=== PATIENT | male | born 1980 | race Caucasian/White ===

== ENCOUNTER 2020-09-01 15:08 | Emergency (ER) | payer OTHER, SELFPAY ==
[2020-09-01 15:13] VITALS: BP 145/73; PULSE 78; RESP 19; TEMP 36.9; O2SAT 96; BMI 43.1
--- NOTE | 2020-09-01 16:48 | ED.GENADULT ---
HPI - General Adult General Chief complaint: General Medical Stated complaint: RASH Time Seen by Provider: 09/01/20 16:48 History of Present Illness HPI narrative: Patient complains of red itchy rash all over his body this started 2 days ago and 3 days ago he started a new medication trazodone, he has no throat swelling no shortness of breath, no pain no blistering no dizziness no weakness Related Data Previous Rx's Medication Instructions Recorded cetirizine 10 mg PO DAILY PRN #10 tab 09/01/20 prednisone 60 mg PO DAILY 3 Days #9 tab 09/01/20 Allergies Allergy/AdvReac Type Severity Reaction Status Date / Time trazodone Allergy Hives Verified 09/01/20 17:14 Review of Systems Review of Systems: Positive for red itchy rash Negatives are no fever no chills no dizziness no weakness no swelling in the throat or tongue no difficulty breathing or swallowing or speaking, no chest pain no shortness of breath, no nausea no vomiting, no joint pain or swelling, no numbness or weakness PMFSH Past Medical History Source: nursing notes reviewed Medical History (Updated 09/02/20 @ 00:01 by Teodora Lino) Asthma Ichthyosis Morbid obesity Surgical History (Updated 09/01/20 @ 15:18 by Celia Swann RN) H/O hernia repair Social History Social History Smoked in Last 30 Days: No Use of substances other than those prescribed or required for medical reasons: No Advance Directives: No Advance Directives Information Provided: No Physical Exam Vital Signs: Vital Signs: Last Vital Signs Temp 98.5 F 09/01/20 15:13 Pulse 78 09/01/20 15:13 Resp 19 09/01/20 15:13 BP 145/73 H 09/01/20 15:13 Pulse Ox 96 09/01/20 15:13 Body Mass Index 43.1 General appearance is no acute distress, comp and cooperative The ears are clear The eyes are clear without redness or discharge The pharynx is clear with no swelling of lips tongue uvula or pharynx, no trismus, speaking in a normal voice The neck is supple, no stridor The chest is clear to auscultation with full symmetric equal breath sounds Heart rate and rhythm regular no murmur Abdomen soft nontender Skin exam shows a red maculopapular rash that is nontender with intact skin that shows some evidence of excoriation on trunk arms legs neck face Extremities is full range of motion x4, gait is normal there is no joint swelling Course Course Course Narrative: Allergy may be a reaction to trazodone so he is advised to stop taking the trazodone and is started with symptomatic treatment for his rash and is otherwise well appearing and is discharged Discharge Plan Discharge Clinical Impression: Rash Patient Disposition: Home, Self-Care Additional Instructions: I believe this rash is a response to new medication trazodone so stop the trazodone We are starting steroid prednisone as well as daily Zyrtec Zyrtec is similar to Atarax so instead of taking Atarax 3 times a day you can take it once a day 25 mg as a supplement and at night at bedtime if itching and rash are severe you can take 1 tablet or 2 tablet of your Atarax at bedtime that is 25 or 50 mg Return any time any worse condition or any concerns especially difficulty breathing, fever, swelling in throat or difficulty swallowing 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
[2020-09-01] MEDS: Loratadine 10 MG TABLET PO (17:46)
[2020-09-01] MEDS: predniSONE 20 MG TABLET 60 MG PO (17:46)
== END 2020-09-01 18:01 | disposition home or self-care (01) ==
PROVIDERS: Emergency Provider Emergency Medicine
DX: R21 Rash and other nonspecific skin eruption (principal)
CPT/HCPCS: 99283; 99284

== ENCOUNTER 2020-09-15 23:22 | Emergency (ER) | payer OTHER, SELFPAY ==
[2020-09-16 01:51] VITALS: BP 135/83; PULSE 66; RESP 16; TEMP 36.6; O2SAT 96; BMI 42.9
--- NOTE | 2020-09-16 02:14 | ED_ITS ---
HPI - General Adult General Chief complaint: Allergic Reaction Stated complaint: RASH Time Seen by Provider: 09/16/20 01:10 Source: patient Mode of arrival: ambulatory Limitations: no limitations History of Present Illness HPI narrative: Patient comes to emergency room complaining of a whole body rash. Patient states that he has been seen here before for a similar reaction. On September 01 patient came to the emergency room, he was asked to stop taking his new medication trazodone due to a similar reaction. Patient states that he did stop taking the medication, the diffuse rash did improve. However, 2 days ago patient started having diffuse redness and hives, very itchy, no fever or chills. Patient denies eye pain, no oral or genital ulcers. Patient states that he has been diagnosed with Ichthyosis, states that he has chronic skin peeling including palms and soles. Related Data Previous Rx's Medication Instructions Recorded cetirizine 10 mg PO DAILY PRN #10 tab 09/01/20 prednisone 60 mg PO DAILY 3 Days #9 tab 09/01/20 Allergies Allergy/AdvReac Type Severity Reaction Status Date / Time trazodone Allergy Hives Verified 09/01/20 17:14 Review of Systems Review of Systems: Constitutional : No Weight loss, No Fever, No Chills, No Night Sweats, No Fatigue, No Malaise ENT/Mouth : No Hearing loss, No Ear Pain, No Nasal Congestion, No Sinus Pain, No Hoarseness, No sore throat, No Rhinorrhea, No Swallowing Difficulty Eyes: No Eye Pain, No Swelling, No Redness, No Foreign Body, No Discharge, No Vision Changes Cardiovascular : No Chest Pain, No SOB, No Dyspnea on Exertion, No Orthopnea, No Edema, No Palpitations Respiratory : No Cough, No Sputum, No Wheezing, No Smoke Exposure, No Dyspnea Gastrointestinal : No Nausea, No Vomiting, No Diarrhea, No Constipation, No abdominal Pain, No Hematochezia, No Melena Genitourinary : no irregular bleeding, No Dysuria, No Urinary Frequency, No Hematuria, No Urinary Incontinence, No Urgency, No Flank Pain, No Urinary Flow Changes, No Hesitancy Musculoskeletal : No joint pain, No Myalgias, No Joint Swelling Skin : Complaining of diffuse itchy rash Neuro : No Weakness, No Numbness, No Paresthesias, No Loss of Consciousness, No Dizziness, No Headache Psych : No Anxiety/Panic, No Depression, No SI/HI/AH/VH, No Social Issues, Heme/Lymph: No Bruising, No Bleeding,No Lymphadenopathy Endocrine : No Polyuria, No Polydipsia, No Temperature Intolerance [facility], [facility] Past Medical History Medical History Asthma Ichthyosis Morbid obesity Surgical History H/O hernia repair Social History Social History Alcohol intake: never Smoking Status: Never smoker Advance Directives: No Advance Directives Information Provided: No Physical Exam Vital Signs: Vital Signs: Last Vital Signs Temp 98.0 F 09/16/20 04:38 Pulse 62 09/16/20 04:38 Resp 18 09/16/20 04:38 BP 142/81 H 09/16/20 04:38 Pulse Ox 98 09/16/20 04:38 Body Mass Index 42.9 Appearance: Alert. Oriented X3. No acute distress. Eyes: Pupils equal, round and reactive to light. ENT: Pharynx normal. No ulcerations , no cracked lips, no ulcers Neck: Normal inspection. Neck supple. No lymph nodes noted. No crepitus CVS: Normal heart rate and rhythm. Pulses normal. Normal S1 and S2 Respiratory: No respiratory distress. Breath sounds normal. No Wheezing. No rales Abdomen: Soft and nontender. No rigidity. No distention. good BS x4 : Normal male genitalia, no ulcers, candidiasis in inguinal crease Skin: Diffuse erythema in all scan, no ulcerations, multiple scratch frausto in his back Extremities: No lower extremity edema. No lower extremity edema. No Lacerations. No Rash Neuro: Oriented X 3. No motor deficit. No sensory deficit. Moving all extermities. No slurred speech. Course Course Course Narrative: Overall patient is improving with 1 dose of Solu-Medrol, Pepcid, Benadryl. Patient will likely benefit from a 2nd dose which will be started now (05:00). Patient's rash is improving, however he still significantly erythematous especially in his back. Patient's mother is at bedside states that she thinks that the rash is getting better, but still present especially in the back. Patient states that the itchiness has resolved At this time, it is unlikely that the patient has Markus Yunior syndrome. Patient still needs several doses of steroids, diagnosis remains unclear, possibly an allergic reaction to an unknown substance. I discussed the patient with the hospitalist, patient will be admitted for observation Medical Decision Making Lab Data Result diagrams: 09/16/20 02:38 09/16/20 03:06 Labs: Lab Results 09/16/20 09/16/20 09/16/20 Range/Units 02:37 02:38 02:38 WBC 7.9 (4.8-10.8) X10*3/uL RBC 4.93 (4.60-5.80) X10*6/uL Hgb 12.9 L (14.0-18.0) g/dl Hct 39.3 L (42-52) % MCV 79.7 L (80-98) fL MCH 26.2 L (27.0-33.0) pg MCHC 32.8 (31.0-36.0) g/dl RDW 14.4 (11.0-16.0) % Plt Count 275 (160-400) X10*3/uL MPV 8.2 L (9.4-12.4) fL Immature Gran % (Auto) 0.3 (0.0-0.4) % Neut % (Auto) 62.4 (45-73) % Lymph % (Auto) 25.5 (20-40) % [place] % (Auto) 8.1 (2-11) % Eos % (Auto) 3.3 (0-4) % Baso % (Auto) 0.4 (0-2) % Lymph # (Auto) 2.0 (1.2-4.9) X10*3/uL [place] # (Auto) 0.6 (0.1-1.2) X10*3/uL Eos # (Auto) 0.3 (0.0-0.4) X10*3/uL Baso # (Auto) 0.0 (0.0-0.2) X10*3/uL Abs Immat Gran (auto) 0.02 (0.00-0.03) X10*3/uL Absolute Neuts (auto) 4.9 (2.0-8.3) X10*3/uL Absolute Nucleated RBC 0.000 (0.0-0.012) X10*3/uL Nucleated RBC % (auto) 0.0 (0.0-0.2) /100WBC ESR 33 H (0-15) MM/HR PT 13.1 H (10.8-13.0) SEC INR 1.1 (0.9-1.1) APTT 41.9 H (24.1-38.0) SEC Sodium (135-145) mmol/L Potassium (3.3-5.1) mmol/L Chloride (96-108) mmol/L Carbon Dioxide (22-29) mmol/L Anion Gap (12-20) BUN (9-16) mg/dL Creatinine (0.5-1.4) mg/dL Estim Creat Clear Calc Estimated GFR Random Glucose (60-115) mg/dL Lactic Acid (0.5-2.0) mmol/L Calcium (8.4-10.2) mg/dL Total Bilirubin (0.0-1.0) mg/dL Direct Bilirubin (0.0-0.5) mg/dL AST (5-37) U/L ALT (0-40) U/L Alkaline Phosphatase (39-117) U/L C-Reactive Protein (< or = 0.50) mg/dL Total Protein (6.5-8.0) g/dL Albumin (3.5-5.0) g/dL 09/16/20 09/16/20 Range/Units 02:38 03:06 WBC (4.8-10.8) X10*3/uL RBC (4.60-5.80) X10*6/uL Hgb (14.0-18.0) g/dl Hct (42-52) % MCV (80-98) fL MCH (27.0-33.0) pg MCHC (31.0-36.0) g/dl RDW (11.0-16.0) % Plt Count (160-400) X10*3/uL MPV (9.4-12.4) fL Immature Gran % (Auto) (0.0-0.4) % Neut % (Auto) (45-73) % Lymph % (Auto) (20-40) % [place] % (Auto) (2-11) % Eos % (Auto) (0-4) % Baso % (Auto) (0-2) % Lymph # (Auto) (1.2-4.9) X10*3/uL [place] # (Auto) (0.1-1.2) X10*3/uL Eos # (Auto) (0.0-0.4) X10*3/uL Baso # (Auto) (0.0-0.2) X10*3/uL Abs Immat Gran (auto) (0.00-0.03) X10*3/uL Absolute Neuts (auto) (2.0-8.3) X10*3/uL Absolute Nucleated RBC (0.0-0.012) X10*3/uL Nucleated RBC % (auto) (0.0-0.2) /100WBC ESR (0-15) MM/HR PT (10.8-13.0) SEC INR (0.9-1.1) APTT (24.1-38.0) SEC Sodium 141 (135-145) mmol/L Potassium 3.7 (3.3-5.1) mmol/L Chloride 105 (96-108) mmol/L Carbon Dioxide 25 (22-29) mmol/L Anion Gap 15 (12-20) BUN 15 (9-16) mg/dL Creatinine 0.71 (0.5-1.4) mg/dL Estim Creat Clear Calc 167.0 Estimated GFR > 60 Random Glucose 95 (60-115) mg/dL Lactic Acid 0.7 (0.5-2.0) mmol/L Calcium 9.1 (8.4-10.2) mg/dL Total Bilirubin 0.4 (0.0-1.0) mg/dL Direct Bilirubin < 0.2 (0.0-0.5) mg/dL AST 18 (5-37) U/L ALT 29 (0-40) U/L Alkaline Phosphatase 83 (39-117) U/L C-Reactive Protein 3.94 H (< or = 0.50) mg/dL Total Protein 7.1 (6.5-8.0) g/dL Albumin 4.1 (3.5-5.0) g/dL Discharge Plan Discharge Clinical Impression: Allergic reaction Patient Disposition: Admitted As Inpatient Prescriptions: No Action cetirizine 10 mg tablet 10 mg PO DAILY PRN (Reason: Rash and itching) Qty: 10 RF: 0 prednisone 20 mg tablet 60 mg PO DAILY 3 Days Qty: 9 RF: 0
[2020-09-16 02:42] LABS: MANUAL DIFF FLAG NO
[2020-09-16] MEDS: diphenhydrAMINE HCL 50 MG/ML VIAL IVPUSH (02:43)
[2020-09-16] MEDS: methylPREDNISolone Sod Succ 125 MG/2 ML VIAL IVPUSH ×2 (02:43→05:26)
[2020-09-16] MEDS: Famotidine/PF 20 MG/2 ML VIAL IVPUSH ×2 (02:43→05:27)
[2020-09-16] MEDS: 0.9 % Sodium Chloride 1,000 ML 999 ML IVCONT (02:43)
[2020-09-16 02:59] LABS: Basophils Percent Auto 0.4 % (0-2); Eosinophils Absolute Auto 0.3 X10*3/uL (0.0-0.4); Eosinophils Percent Auto 3.3 % (0-4); Hematocrit 39.3 % (42-52); Hemoglobin 12.9 g/dl (14.0-18.0); Imm Gran Abs Auto 0.02 X10*3/uL (0.00-0.03); Imm Gran Pct Auto 0.3 % (0.0-0.4); Lymphocytes Percent Auto 25.5 % (20-40); Mean Corpuscular HGB Conc 32.8 g/dl (31.0-36.0); Mean Corpuscular Hemoglobin 26.2 pg (27.0-33.0); Mean Corpuscular Volume 79.7 fL (80-98); Mean Platelet Volume 8.2 fL (9.4-12.4); Monocytes Absolute Auto 0.6 X10*3/uL (0.1-1.2); Monocytes Percent Auto 8.1 % (2-11); Neutrophils Absolute Auto 4.9 X10*3/uL (2.0-8.3); Neutrophils Percent Auto 62.4 % (45-73); Platelet Count 275 X10*3/uL (160-400); Red Blood Count 4.93 X10*6/uL (4.60-5.80); Red Cell Distribution Width 14.4 % (11.0-16.0); White Blood Count 7.9 X10*3/uL (4.8-10.8)
[2020-09-16 03:03] LABS: Lactic Acid 0.7 mmol/L (0.5-2.0)
[2020-09-16 03:18] LABS: INTERNATIONAL NORM RATIO 1.1 (0.9-1.1); Prothrombin Time 13.1 SEC (10.8-13.0)
[2020-09-16 03:39] LABS: Alanine Aminotransferase 29 U/L (0-40); Albumin Level 4.1 g/dL (3.5-5.0); Alkaline Phosphatase 83 U/L (39-117); Anion Gap 15 (12-20); Aspartate Amino Transferase 18 U/L (5-37); Bilirubin Direct < 0.2 mg/dL (0.0-0.5); Bilirubin Total 0.4 mg/dL (0.0-1.0); Blood Urea Nitrogen 15 mg/dL (9-16); C Reactive Protein 3.94 mg/dL (< or = 0.50); Calcium 9.1 mg/dL (8.4-10.2); Carbon Dioxide 25 mmol/L (22-29); Chloride 105 mmol/L (96-108); Estimated Glomerular Filt Rate > 60; Glucose Random 95 mg/dL (60-115); Potassium 3.7 mmol/L (3.3-5.1); Sodium 141 mmol/L (135-145); Total Protein 7.1 g/dL (6.5-8.0)
[2020-09-16 03:40] LABS: Erythrocyte Sedimentation Rate 33 MM/HR (0-15)
[2020-09-16 03:45] LABS: Partial Thromboplastin Time 41.9 SEC (24.1-38.0)
[2020-09-16 04:38] VITALS: BP 142/81; PULSE 62; RESP 18; TEMP 36.7; O2SAT 98
[2020-09-16] MEDS: diphenhydrAMINE HCL 50 MG/ML VIAL 25 MG IVPUSH (05:27)
[2020-09-16 11:22] VITALS: BP 156/91; PULSE 87; RESP 16; O2SAT 94
== END 2020-09-16 11:51 | disposition home or self-care (01) ==
LOC: HO.ED 09-16 07:19 → HO.EDOVER 09-16 11:13
PROVIDERS: Emergency Medicine; Emergency Provider Emergency Medicine Emergency Medical Services
DX: L23.9 Allergic contact dermatitis, unspecified cause (principal); Z79.899 Other long term (current) drug therapy
CPT/HCPCS: 36415; 80048; 80076; 83605; 85025; 85610; 85652; 85730; 86140; 87040; 96365; 96375; 96376; 99284; J1200; J2930

== ENCOUNTER 2020-10-02 11:28 | Emergency (ER) | payer OTHER, SELFPAY ==
[2020-10-02 11:47] VITALS: BP 150/94; PULSE 69; RESP 19; TEMP 36; O2SAT 96; BMI 43.2
--- NOTE | 2020-10-02 12:35 | ED.GENADULT ---
HPI - General Adult General Chief complaint: General Medical Stated complaint: finger infection Time Seen by Provider: 10/02/20 12:35 Source: patient Mode of arrival: ambulatory Limitations: no limitations (Mother present) History of Present Illness HPI narrative: 32-year-old male with history of asthma, morbid obesity and childhood ichthyosis being followed by Derm Dr. Xiao he comes in today with complaint of question infection to the right thumb and right ring finger at the bilateral cuticle the area is slightly indurated and appears to be masslike. States always wears gloves due to his chronic skin conditions and and this has been there for a long time mother states she is not really sure that is why she brought him in. He is currently taking Keflex that was given to him by a field identification specialist for cellulitis of the right forearm where he itches and this is getting better. There is no new rash, fever, or side effects from the antibiotics. Onset (ago): month(s) Location: right (Right thumb, right ring finger) Radiation: non-radiation Severity: mild Relieving factors: none Exacerbating factors: none Associated symptoms: denies other symptoms Treatments prior to arrival: none Related Data Home Medications Medication Instructions Recorded Confirmed Refresh P.M. 09/16/20 acitretin 1 cap PO DAILY 09/16/20 acitretin [Soriatane] 1 cap PO BID 09/16/20 albuterol sulfate 1 vial INHALATION Q4H PRN 09/16/20 09/16/20 albuterol sulfate 2 puff INHALATION Q4-6H PRN 09/16/20 09/16/20 aripiprazole 1 tab PO DAILY 09/16/20 09/16/20 cetirizine 1 tab PO DAILY PRN 09/16/20 09/16/20 clonidine HCl 1 tab PO BEDTIME 09/16/20 09/16/20 diazepam 1 tab PO DAILY 09/16/20 09/16/20 erythromycin 0.5 OPHTHALMIC (EYE) BEDTIME 09/16/20 escitalopram oxalate 1 tab PO DAILY 09/16/20 09/16/20 gabapentin 1 cap PO TID 09/16/20 09/16/20 hydroxyzine HCl 12.5 ml PO TID PRN 09/16/20 09/16/20 lansoprazole 1 cap PO QAM 09/16/20 09/16/20 lorazepam 1 tab PO DAILY PRN 09/16/20 09/16/20 montelukast 1 tab PO BEDTIME 09/16/20 09/16/20 trazodone 1 tab PO BEDTIME 09/16/20 triamcinolone acetonide 1 applic TOPICAL BID PRN 09/16/20 Allergies Allergy/AdvReac Type Severity Reaction Status Date / Time trazodone Allergy Hives Verified 09/01/20 17:14 Review of Systems Review of Systems: Constitutional: No Weight loss, No Fever, No Chills, No Night Sweats, No Fatigue, No Malaise ENT/Mouth: No Hearing loss, No Ear Pain, No Nasal Congestion, No Sinus Pain, No Hoarseness, No sore throat, No Rhinorrhea, No Swallowing Difficulty Eyes: No Eye Pain, No Swelling, No Redness, No Foreign Body, No Discharge, No Vision Changes Cardiovascular: No Chest Pain, No SOB, No Dyspnea on Exertion, No Orthopnea, No Edema, No Palpitations Respiratory: No Cough, No Sputum, No Wheezing, No Smoke Exposure, No Dyspnea Gastrointestinal: No Nausea, No Vomiting, No Diarrhea, No Constipation, No abdominal Pain, No Hematochezia, No Melena Genitourinary: no irregular bleeding, No Dysuria, No Urinary Frequency, No Hematuria, No Urinary Incontinence, No Urgency, No Flank Pain, No Urinary Flow Changes, No Hesitancy Musculoskeletal: No joint pain, No Myalgias, No Joint Swelling Skin: No Skin Lesions, No rash Neuro: No Weakness, No Numbness, No Paresthesias, No Loss of Consciousness, No Dizziness, No Headache Psych: No Social Issues Heme/Lymph: No Bruising, No Bleeding,No Lymphadenopathy Endocrine: No Polyuria, No Polydipsia, No Temperature Intolerance Yes all other systems are reviewed and are negative [facility] Past Medical History Medical History Asthma Ichthyosis Morbid obesity Surgical History H/O hernia repair Social History Social History Alcohol intake: never Smoking Status: Never smoker Advance Directives: No Advance Directives Information Provided: Yes Physical Exam Vital Signs: Vital Signs: Last Vital Signs Temp 96.8 F 10/02/20 11:47 Pulse 69 10/02/20 11:47 Resp 19 10/02/20 11:47 BP 150/94 H 10/02/20 11:47 Pulse Ox 96 10/02/20 11:47 Body Mass Index 43.2 Reviewed Const: General: cooperative and healthy appearing; No acute distress or intoxicated appearing Nutritional Appearance: average body habitus Orientation/consciousness: patient oriented x3 HENMT: Head: Yes normal to inspection Ears: hearing grossly normal bilaterally Eyes: General: appearance normal, both eyes and all related structures Visual Bui: normal visual bui by confrontation Neck: Neck: Yes normal visual inspection, No positive Brudzinski's sign, No positive Kernig's sign and No tender Thyroid: Thyroid normal Chest: Chest palpation & inspection: normal inspection of the chest Resp: Effort & Inspection: normal respiratory effort Auscultation: clear to auscultation bilaterally Cardio: Jugular venous distension: no JVD Rhythm: regular rhythm Heart sounds: S1 normal heart sound present and S2 normal heart sound present GI: Inspection: Yes normal to inspection Palpation (GI): Soft to palpation Percussion: Yes normal to percussion Auscultation: normal bowel sounds : General: Yes no CVA tenderness Back/Spine/Pelvis: Back: no CVA tenderness Skin: Other: He has what appears to be superficial scratch frausto to the right forearm that he is currently being treated with Keflex for cellulitis. This does not appear to be acute erythema or infectious pathology at this time. He otherwise has no new rash. No rash in the oral cavity. General skin exam: no rashes or lesions noted Neuro: General: patient oriented x3 Extrem: General: Yes normal to inspection Hand/finger images: 1. Both right thumb and right ring finger at the cuticle is indurated appears colloid like mass. There is no tender palpation. There is no drainable collection. There is no erythema, paronychia, acute infectious pathology. States this is probably been there for long time. Course Course Course Narrative: Abnormal skin growth at the cuticle the right thumb and index finger does not appear to be chronic underlying history of ichthyosis for which he is being followed by Dr. vazquez they will call tomorrow to have him evaluated for this he forget to mention this last visit. Question biopsy. Discharge Plan Discharge Clinical Impression: Skin lesion Patient Disposition: Home, Self-Care Instructions: General Mass Excision (DC) Additional Instructions: Please follow-up with Dr. vazquez Continue taking antibiotics as prescribed by him Return if any concerns or worsening symptoms Thank you Prescriptions: No Action acitretin 10 mg capsule 1 cap PO DAILY RF: 0 cetirizine 10 mg tablet 1 tab PO DAILY PRN (Reason: itch) RF: 0 gabapentin 400 mg capsule 1 cap PO TID RF: 0 triamcinolone acetonide 0.1 % cream 1 applic topical BID PRN (Reason: Itching) RF: 0 acitretin [Soriatane] 25 mg capsule 1 cap PO BID RF: 0 erythromycin 5 mg/gram (0.5 %) ointment 0.5 ophthalmic (eye) BEDTIME RF: 0 lansoprazole 15 mg capsule,delayed release(DR/EC) 1 cap PO QAM RF: 0 montelukast 10 mg tablet 1 tab PO BEDTIME RF: 0 albuterol sulfate 90 mcg/actuation HFA aerosol inhaler 2 puff inhalation Q4-6H PRN (Reason: wheezing) RF: 0 diazepam 5 mg tablet 1 tab PO DAILY RF: 0 escitalopram oxalate 20 mg tablet 1 tab PO DAILY RF: 0 Refresh P.M. drops RF: 0 clonidine HCl 0.1 mg tablet 1 tab PO BEDTIME RF: 0 trazodone 50 mg tablet 1 tab PO BEDTIME RF: 0 hydroxyzine HCl 10 mg/5 mL solution 12.5 ml PO TID PRN (Reason: itch) RF: 0 aripiprazole 15 mg tablet 1 tab PO DAILY RF: 0 albuterol sulfate 2.5 mg /3 mL (0.083 %) solution for nebulization 1 vial inhalation Q4H PRN (Reason: wheezing) RF: 0 lorazepam 0.5 mg tablet 1 tab PO DAILY PRN (Reason: anxiety) RF: 0 Referrals: Cj Xiao MD [Physician] - 2 days
== END 2020-10-02 13:02 | disposition home or self-care (01) ==
PROVIDERS: Emergency Provider Emergency Medicine; PCP Physician Assistant
DX: L98.9 Disorder of the skin and subcutaneous tissue, unspecified (principal); Q80.8 Other congenital ichthyosis
CPT/HCPCS: 99283

== ENCOUNTER 2023-05-10 13:49 | Outpatient (AMB) | payer OTHER, SELFPAY ==
--- NOTE | 2023-05-10 14:23 | A.SPINEOV_ITS ---
Intake Intake Visit Reasons: degenerative disc disease Intake Note: Mr. Bhandari is here today c/o low back pain shooting up his back. MRI done @ [facility]. Bundle Tier Required: No Allergies trazodone Allergy (Verified 09/01/20 17:14) Hives Assessment & Plan Assessment & Plan (1) Back pain: Code(s): M54.9 - Dorsalgia, unspecified Plan Dear Burak Thank you for referring Mr. Bhandari to our office today. He is a 42-year-old developmentally delayed and challenged individual who has had back pain going on for over a year. He has a very difficult historian so I am unable to get much out of him. He tells me that the pain is better if he is lying in a recliner and is particularly worse if he sitting straight up. He cannot really tell me if walking makes it worse. His mother is with him today and is helping may interpret some of what he says, but more last she says that he is in the chair most of the day. He has developed a bedsore because of it. He has no fevers, but recently has been having episodes where he has felt like he is going to pass out. He has had some radicular pain but does not report any numbness. He tells me is bladder is working fine and there is no incontinence. He has been taking Advil and oxycodone to try to help with the pain. He has an MRI done in January showing some nonspecific findings of edema in the pedicles of L3 and some soft tissue inflammation. PMH: Hypertension, developmentally delayed, as mother tells me he has the intelligence of about 5th grader or lasts. He has some kind of varicose vein issue where his legs will spontaneously leak blood. As mentioned he has a bedsore that is being treated with dressings at this point. The mother tells me that it is is just a slight opening in the skin but there is no exposed tissue underneath. He has a history of frequent MRSA infections. Social hx: He does not smoke, drink or use alcohol Medications: Advil, oxycodone, aripiprazole, cetirizine, acitretin, Valium, singular, lorazepam Allergies: Trazodone Physical exam: He is awake alert, he is able to follow some simple commands but resists me when I try to examine his legs. He can wiggle his toes and demonstrate generalized movement but would not allow me to examine his back or could not point to the area that was bothering him. When I asked him to sit forward in the chair told me it was too uncomfortable and that he refused to do it. Reflexes are absent bilaterally in the patella. I could not test is Achilles. He had a significant amount of discomfort in his low back with any attempts to lift his legs or manipulate them. Imaging review: He has an MRI done at [facility] [place] in January of this year showing as mentioned above some nonspecific findings in the pedicles of L3 and some of the soft tissues but otherwise he has no evidence of any disc degeneration or nerve compression. Impression: 42-year-old male who is developmentally delayed, limited historian presents with a year more back pain, recently escalating over the last few months. He has an MRI which shows basically some nonspecific findings, nothing that can point me in the room direction of what is causing his severity of his pain. In the office he would not even allow me to manipulate his legs or show me were heard on his back. The report suggests there could be some disc degeneration but this is not fitting with that kind of picture. There is some nonspecific edema in the pedicles of L3 in the soft tissues of the back. He does have a history of MRSA infections not infrequently and a recent development of a bedsore which has been getting worse. I am going to put him in for repeat MRI of the lumbar spine with without gadolinium just to rule out he is not developing a delayed infection. He has no constitutional symptoms, but his mother has told recently that she feels as though he is starting to get pale looking like he may pass out at times. She is going to contact our office to discuss this further. Thank you for allowing us to care for your patient. The total time spent with this visit with this patient was 45 minutes reviewing history, physical exam, lumbar imaging review, and implementation of treatment plan or further diagnostic testing Dk Gaffney MD,PhD [facility] Orders: Orders MR lumbar spine wo/w con Today M54.9 - Dorsalgia, unspecified Coding Level of Care Code New Pt Level 4 (14060) Diagnoses Back pain M54.9
== END 2023-05-10 16:14 | disposition home or self-care (01) ==
PROVIDERS: PCP Physician Assistant; Referring Provider Physician Assistant; Visit Provider Physician Assistant
DX: M54.9 Dorsalgia, unspecified (principal)
CPT/HCPCS: 99204

== ENCOUNTER → 2023-05-10 13:49 | Outpatient (BNVA) | payer OTHER, SELFPAY | PROVIDERS: PCP Physician Assistant; Visit Provider Physician Assistant | DX: M54.9 Dorsalgia, unspecified (principal) | CPT/HCPCS: 99202 ==

== ENCOUNTER 2023-09-30 14:05 | Outpatient (AMB) | payer OTHER, SELFPAY ==
--- NOTE | 2023-09-30 14:08 | MHC.OFFVIS ---
Vital Signs 09/30/23 14:21 Height 5 ft 5 in Weight 194 lb 2 oz BMI 32.3 BP 114/62 Blood Pressure Location Lt brachial Position Sitting Respiration 14 Pulse 66 Pulse Source Pulse Oximeter Pulse Oximetry (%) 94 Oxygen Delivery Method Room Air Intake Visit Reasons: Lower back traveling to legs Intake Note: Patient comes in with his mother Tri states she's his health care proxy for initial visit was referred by spine center. Reports pain 9.5/10. Allergies trazodone Allergy (Verified 09/30/23 14:19) Hives HPI Comments Details: Joce is very pleasant 43 years old gentleman who presents in my office with complains on pain in lumbar spine with radiation into bilateral lower extremities. He had MRI of the lumbar spine and he was examined by neurosurgery which send him for pain management. He reports that the pain started 3 years ago. He is mentally retarded and with developmental delay. He reports his pain is 10/10 he can not sleep normally because of his pain can not do activities of daily living can not function normally he is on permanent disability. He reports that cold and movements aggravate his pain. He reports that he can not sit because of his pain. He only can not stand or lay down. During the appointment he was standing all the time. Needs walker for ambulation. Oral medications alleviate his pain minimally. 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 He never had physical therapy for his pain. 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 He had an MRI of the lumbar spine results of which dictated as below. He never had physical therapy his skin condition physical therapy probably will be contraindicated although needs to be verified. He admits hypertension and asthma. He is mentally retarded. He understands verbal conversation and he respond appropriately to questions and commands. He states that he can not tolerate injections that he can not tolerate well the needles. He has history of MRSA infection he was treated several times for this condition. He was cleared out from MRSA colonization after the treatment. He denies smoking cigarettes he states that he stopped at 18 years ago. He denies drinking alcohol he admits drinking caffeinated beverages coffee tea and sometimes soda. He denies recreational drugs. [facility] Medical History Asthma Ichthyosis Morbid obesity Surgical History H/O hernia repair Social History Alcohol intake: never Review of Systems Const All systems reviewed & are unremarkable except as noted in HPI and below Denies chills, Denies fatigue and Denies fever(s) Eyes Denies blurry vision, Denies exophthalmos and Denies diplopia ENT Reports Normal hearing present, Denies vertigo and Denies dizziness Card Denies chest pain, Denies chest pain at rest, Denies chest pain with activity, Reports diaphoresis, Denies syncope, Denies rapid heart rate, Denies pedal edema and Denies edema Resp Denies chest congestion, Denies cough, Denies hemoptysis, Denies excessive phlegm production, Denies pain on inspiration and Denies pain with cough GI Denies abdominal pain, Denies belching, Denies melena and Denies bloating Denies urinary incontinence Musc Reports as per HPI, Reports back pain, Reports myalgias, Reports radiating pain into limb and Denies tingling Skin/Breast Reports as per HPI and Reports lesions Neuro Reports Normal hearing present, Denies Abnormal speech present, Denies vertigo, Denies dizziness, Denies syncope, Denies lack of coordination, Denies Sensory deficit (Neuro) and Denies tingling Psych Denies no additional complaints and Denies depression Endo Denies deepening of the voice, Denies fatigue and Denies polyuria Physical Exam Vital Signs: Last Vital Signs Pulse 66 09/30/23 14:21 Resp 14 09/30/23 14:21 BP 114/62 09/30/23 14:21 Pulse Ox 94 09/30/23 14:21 Oxygen Delivery Method Room Air 09/30/23 14:21 BMI result Body Mass Index 32.3 Const General: no acute distress, well developed and poor hygiene Nutritional Appearance: overweight Orientation/consciousness: patient oriented x3 Limitations: behavioral limitations and ambulation with walker Eyes General: appearance normal, both eyes and all related structures Pupils: Equal, round and reactive pupils present EOM: EOMs intact bilaterally Neck Neck: Yes full ROM Chest Chest palpation & inspection: normal inspection of the chest Resp Effort & Inspection: normal respiratory effort, able to speak in complete sentences, normal respiratory pattern, no audible wheezes and no cough Cardio Jugular venous distension: no JVD GI Inspection: Yes normal to inspection Back/Spine/Pelvis Other: Tenderness on palpation mostly in the projection of the upper lumbar spine. Skin General skin exam: atrophy, crusts, dry skin and erythema Hair: brittle, general thinning and scarring alopecia Nails: dystrophic Neuro General: patient oriented x3 Cranial nerves: Yes Equal, round and reactive pupils present and Yes Normal hearing present Speech: No Abnormal speech present Gait exam (Neuro): Normal gait present Motor exam (neuro): 5/5 motor strength present throughout Sensory Exam: No Sensory deficit (Neuro) Extrem General: No pedal edema Psych Speech and movement: Normal speech and movement present Affect: normal affect Attitude: cooperative Thought process: Normal thought process present Thought content: Normal thought content present Insight: Good insight present (Psych) Judgement: Good judgement present (Psych) Results Reviewed Results Reviewed: MRI lumbar spine 07/10/2023 paraspinous soft tissues are normal. No concentric marrow infiltrations lesions. No compression deformity. Normal position of the conus at L1. Lumbar discs levels L1-L2 mild degenerative changes in facet joints no spinal or foraminal stenosis. L2-L3 [id number] degenerative changes of the facet joints. No spinal or foraminal stenosis. L3-L4 mild moderate degenerative changes of the right facet joint and minimally degenerative changes in the left facet joint. No spinal or foraminal stenosis. L4-5 mild degenerative changes of the facet joints were signal of the spinal or foraminal stenosis. L5-S1: Mild degenerative changes of the facet joints. No spinal or foraminal stenosis. After personal evaluation of the MRI if there are any Modic type changes they are in the projection of L1-L2 vertebra and therefore not available for intercept procedure. Assessment & Plan Assessment & Plan (1) Back pain: Code(s): M54.9 - Dorsalgia, unspecified Category: Medical (2) Spondylosis of lumbar region without myelopathy or radiculopathy: Code(s): M47.816 - Spondylosis without myelopathy or radiculopathy, lumbar region Category: Medical (3) Chronic pain syndrome: Code(s): G89.4 - Chronic pain syndrome Category: Medical Plan With frequent history of MRSA infection and advanced skin condition it remains to be seen whether or not this patient will be able to receive any injections from us. Neuromodulation of with leads out of question because of the skin condition. I do not think this patient will tolerate sprint PNS either. 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 If anything available in terms of steroid injections and patient would understand the risks of the procedure in terms of the MRSA infection medial branch block can not be tried for this patient. I also would like to know whether or not physical therapy would be significant help of this patient and if physical therapy would not be contraindicated with his skin condition. Coding Level of Care Code New Pt Level 3 (43347) Diagnoses Back pain M54.9 Spondylosis of lumbar region without myelopathy or radiculopathy M47.816 Chronic pain syndrome G89.4
[2023-09-30 14:21] VITALS: BP 114/62; PULSE 66; RESP 14; O2SAT 94; BMI 32.3
== END 2023-09-30 14:43 | disposition home or self-care (01) ==
PROVIDERS: PCP Physician Assistant; Visit Provider Anesthesiology
DX: M54.9 Dorsalgia, unspecified (principal); M47.816 Spondylosis without myelopathy or radiculopathy, lumbar region; G89.4 Chronic pain syndrome
CPT/HCPCS: 99203

== ENCOUNTER → 2023-09-30 14:05 | Outpatient (BNVA) | payer OTHER, SELFPAY | PROVIDERS: PCP Physician Assistant; Visit Provider Anesthesiology | DX: M47.816 Spondylosis without myelopathy or radiculopathy, lumbar region (principal); G89.4 Chronic pain syndrome | CPT/HCPCS: 99202 ==

== ENCOUNTER 2023-11-06 15:21 | Outpatient (AMB) | payer OTHER, SELFPAY ==
--- NOTE | 2023-11-06 15:22 | MHC.OFFVIS ---
Intake Visit Reasons: discuss alternatives Allergies trazodone Allergy (Verified 11/06/23 15:23) Rocio GARCIA Comments Details: Joce and his relatives are on the phone today with me to discuss possibility of treatment his pain with interventional pain medicine. Unfortunately neither Joce nor his relative are interested in interventional pain management. Besides in my opinion any injections or neuromodulation attempts at this patient with history of very frequent widespread rashes, history of decubitus wounds, history of multiple MRSA infections will also be a very high risk endeavor which could lead possibly into neuraxial abscesses or paraspinal infection. All of those could lead to widespread infection, sepsis, critical care conditions. Therefore medical pain management in primary care office appears to be the most appropriate approach for the pain control of this patient. Prior: very pleasant 43 years old gentleman who presents in my office with complains on pain in lumbar spine with radiation into bilateral lower extremities. He had MRI of the lumbar spine and he was examined by neurosurgery which send him for pain management. He reports that the pain started 3 years ago. He is mentally retarded and with developmental delay. He reports his pain is 10/10 he can not sleep normally because of his pain can not do activities of daily living can not function normally he is on permanent disability. He reports that cold and movements aggravate his pain. He reports that he can not sit because of his pain. He only can not stand or lay down. During the appointment he was standing all the time. Needs walker for ambulation. Oral medications alleviate his pain minimally. 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 He never had physical therapy for his pain. 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 He had an MRI of the lumbar spine results of which dictated as below. He never had physical therapy his skin condition physical therapy probably will be contraindicated although needs to be verified. He admits hypertension and asthma. He is mentally retarded. He understands verbal conversation and he respond appropriately to questions and commands. He states that he can not tolerate injections that he can not tolerate well the needles. He has history of MRSA infection he was treated several times for this condition. He was cleared out from MRSA colonization after the treatment. He denies smoking cigarettes he states that he stopped at 18 years ago. He denies drinking alcohol he admits drinking caffeinated beverages coffee tea and sometimes soda. He denies recreational drugs. [facility] Medical History Asthma Ichthyosis Morbid obesity Surgical History H/O hernia repair Social History Alcohol intake: never Review of Systems Const All systems reviewed & are unremarkable except as noted in HPI and below Telehealth Telehealth Telehealth Platform: Telephone Location of provider rendering services: practice address Location of patient: address on file Patient Identification confirmed using: Name, : Yes Telehealth method: voice only Patient verbally consented to treatment: Yes Patient verbally consented to billing insurance company: Yes Patient informed of any privacy concerns related to visit: Yes Assessment & Plan Assessment & Plan (1) Back pain: Code(s): M54.9 - Dorsalgia, unspecified Category: Medical (2) Spondylosis of lumbar region without myelopathy or radiculopathy: Code(s): M47.816 - Spondylosis without myelopathy or radiculopathy, lumbar region Category: Medical (3) Chronic pain syndrome: Code(s): G89.4 - Chronic pain syndrome Category: Medical Plan Discussion is as above. The patient and his caregiver are reluctant to go for interventional pain management. It could be right decision in his case because in my opinion he has elevated risk of the infections associated with the injections. I recommend this patient to continue medical pain management at the office of his primary care physician. At this time I do not see any feasibility for interventional pain management for this patient. Patient Instructions: I here by testify that I spent 15 minutes in conversation with this patient. Coding Level of Care Code Tele Est Pt Level 3 (03013) Diagnoses Back pain M54.9 Spondylosis of lumbar region without myelopathy or radiculopathy M47.816 Chronic pain syndrome G89.4
== END 2023-11-06 15:29 | disposition home or self-care (01) ==
LOC: HO.PMC 15:21
PROVIDERS: PCP Physician Assistant; Visit Provider Anesthesiology
DX: G89.4 Chronic pain syndrome (principal); M54.9 Dorsalgia, unspecified; M47.816 Spondylosis without myelopathy or radiculopathy, lumbar region
CPT/HCPCS: 99442

== ENCOUNTER → 2023-11-06 15:21 | Outpatient (BNVA) | payer OTHER, SELFPAY | PROVIDERS: PCP Physician Assistant; Visit Provider Anesthesiology ==